=== PATIENT | male | born 1940 | race Caucasian/White ===

== ENCOUNTER 2022-06-04 12:37 | Inpatient (IN) | payer OTHER ==
[~2022-06-04] VITALS: Ht 182.9 cm; Wt 64.4 kg
[~2022-06-04 12:37] MED LIST: OXYACE5T PO
[2022-06-04 13:14] LABS: BASOPHILS ABSOLUTE AUTO 0.11 K/mm3 (0.00-0.23); BASOPHILS PERCENT AUTO 1 % (0-2); EOSINOPHILS ABSOLUTE AUTO 0.03 K/mm3 (0.00-0.68); EOSINOPHILS PERCENT AUTO 0 % (0-6); Hematocrit 43.1 % (37.0-53.0); Hemoglobin 13.8 g/dL (13.5-17.5); IMMATURE GRAN ABSOLUTE AUTO 0.08 K/mm3 (0.00-0.10); IMMATURE GRAN PERCENT AUTO 0 % (0-1); LYMPHOCYTES ABSOLUTE AUTO 0.97 K/mm3 (0.84-5.20); LYMPHOCYTES PERCENT AUTO 4 % (21-46); MONOCYTES ABSOLUTE AUTO 0.95 K/mm3 (0.16-1.47); MONOCYTES PERCENT AUTO 4 % (4-13); Mean Corpuscular HGB 28.5 pg (26.0-34.0); Mean Corpuscular Volume 89 fL (80-100); Mean Platelet Volume 11.2 fL (9.1-12.4); NEUTROPHILS ABSOLUTE AUTO 19.68 K/mm3 (1.96-9.15); NEUTROPHILS PERCENT AUTO 90 % (41-73); Platelet Count 390 K/mm3 (150-400); RDW Coefficient Variation 14.7 % (11.7-14.2); RDW Standard Deviation 47.8 fL (35.1-46.3); Red Blood Cell Count 4.84 M/mm3 (4.30-5.90); White Blood Cell Count 21.82 K/mm3 (4.00-11.30)
[2022-06-04 13:49] LABS: Albumin, Blood 3.3 g/dL (3.4-5.0); Albumin/Globulin Ratio 0.8 (0.8-1.8); Bilirubin, Total 0.3 mg/dL (0.1-1.0); Bun/Creatinine Ratio 50.7 (12.0-20.0); Calcium, Blood 9.1 mg/dL (8.5-10.1); Creatinine, Blood 0.55 mg/dL (0.60-1.20); Potassium, Blood 4.7 mmol/L (3.5-5.5); Total Protein, Blood 7.3 g/dL (6.4-8.2)
[2022-06-04 14:09] LABS: Influenza A, PCR NEGATIVE (NEGATIVE); Influenza B, PCR NEGATIVE (NEGATIVE); Resp Syncytial Virus, PCR NEGATIVE (NEGATIVE); SARS-Cov-2 (COVID-19) PCR, MMC NEGATIVE (NEGATIVE)
--- NOTE | 2022-06-04 19:50 | NUR ---
SHIFT SUMMARY PTN ADMIT FROM ER AT 1740. PTN TO ER FOR SOB, FOUND TO HAVE SEPSIS/PNEUMONIA. PTN INDEPENDENT, A&O. SKIN HAS SOME BRUISING TO ARMS, SOME REDNESS TO BUTTOCKS THAT IS BLANCHING BUT AT RISK FOR PRESSURE INJURY. PTN EDUCATED ON IMPORTANCE TO SHIFT AND CHANGE POSITIONS OFTEN. PTN DOES SELF CATH, MEASURES OUTPUT. PTN IS NOTED TO HAVE SLIGHT FEVER. LAB CALLED FOR LACTIC ACID 6.0, REPORTED TO NEXT SHIFT RN. SPUTUM CULTURE ORDERED. AT THIS TIME PTN COUGH IS DRY AND NONPRODUCTIVE. CULTURE COLLECTION CUP PROVIDED. CONTINUE TO FOLLOW.
--- NOTE | 2022-06-04 20:56 | NUR ---
SPOKE WITH DR SHAH RE PT'S LACTIC ACID INCREASING TO 6.0 FROM 2.3, PT GOT ROCEPHIN IN THE ER AND HAS LR ORDERED TO RUN AT 150, DR DOES NOT WANT TO ORDER MORE FLUIDS AT THIS TIME, WANTS TO MONITOR THE BP AND IF THERE IS A CHANGE IN THE VS WILL REEVALUATE. ALSO ORDERED ANOTHER LACTIC ACID FOR MIDNIGHT. WE WILL ALSO RECHECK VS AT MIDNIGHT. VS WERE TEMP 98.9, BP 129/68, PULSE 105, BIOX 98% ON 2L NC, RESPIRATIONS 18, PT IS AAO X 4. CARPENTER SUPERVISOR IS AWARE OF THE NEED FOR VS AT MIDMIGHT, WILL SPEAK WITH THE PRIMARY RN RE THE REPEAT LACTIC ACID AND THE MONITORING OF THE BP.
[2022-06-04] MEDS ORDERED: ACET500 PO (23:40)
[2022-06-04] MEDS ORDERED: AZIT500 PO (23:41)
[2022-06-04] MEDS ORDERED: CALCIUM CARBON650 MG PO (23:45)
[2022-06-04] MEDS ORDERED: FLUT1DIS5 INH (23:46)
[2022-06-04] MEDS ORDERED: IPRAT-ALBUT 0.5-3 ML INH (23:46)
[2022-06-04] MEDS ORDERED: MELA3 PO (23:47)
[2022-06-04] MEDS ORDERED: Lisinopril2.5 MG PO (23:47)
[2022-06-04] MEDS ORDERED: Inzo Antifun141.7 GM TOP (23:48)
[2022-06-04] MEDS ORDERED: PANT40 PO (23:49)
[2022-06-04] MEDS ORDERED: MIRALAX17 GM PO (23:49)
[2022-06-04] MEDS ORDERED: ARTIFICIAL TEAR15 M2 BOTHEYES (23:49)
[2022-06-04] MEDS ORDERED: TAMS.4ER PO (23:50)
[2022-06-04] MEDS ORDERED: TIOT18 INH (23:51)
[2022-06-05 00:42] LABS: BASOPHILS ABSOLUTE AUTO 0.04 K/mm3 (0.00-0.23); BASOPHILS PERCENT AUTO 0 % (0-2); EOSINOPHILS PERCENT AUTO 0 % (0-6); Hematocrit 36.9 % (37.0-53.0); Hemoglobin 11.8 g/dL (13.5-17.5); IMMATURE GRAN PERCENT AUTO 1 % (0-1); LYMPHOCYTES ABSOLUTE AUTO 0.67 K/mm3 (0.84-5.20); LYMPHOCYTES PERCENT AUTO 2 % (21-46); MONOCYTES ABSOLUTE AUTO 0.89 K/mm3 (0.16-1.47); MONOCYTES PERCENT AUTO 3 % (4-13); Mean Corpuscular HGB 28.6 pg (26.0-34.0); Mean Corpuscular Volume 89 fL (80-100); Mean Platelet Volume 11.5 fL (9.1-12.4); NEUTROPHILS ABSOLUTE AUTO 26.34 K/mm3 (1.96-9.15); NEUTROPHILS PERCENT AUTO 94 % (41-73); Platelet Count 359 K/mm3 (150-400); RDW Coefficient Variation 14.6 % (11.7-14.2); RDW Standard Deviation 47.5 fL (35.1-46.3); Red Blood Cell Count 4.13 M/mm3 (4.30-5.90); White Blood Cell Count 28.14 K/mm3 (4.00-11.30)
[2022-06-05 01:05] LABS: Albumin, Blood 2.6 g/dL (3.4-5.0); Albumin/Globulin Ratio 0.7 (0.8-1.8); Bilirubin, Total 0.3 mg/dL (0.1-1.0); Bun/Creatinine Ratio 47.8 (12.0-20.0); Calcium, Blood 8.9 mg/dL (8.5-10.1); Creatinine, Blood 0.63 mg/dL (0.60-1.20); Globulin, Blood 3.9 g/dL (2.2-4.0); Potassium, Blood 4.5 mmol/L (3.5-5.5); Total Protein, Blood 6.5 g/dL (6.4-8.2)
--- NOTE | 2022-06-05 07:50 | NUR ---
PATIENT A&OX4, VERY LOOSE SOUNDING NON PRODUCTIVE COUGH MOST OF THE NIGHT. HOSPITALIST NOTIFIED EARLY IN SHIFT OF ELEVATING LACTIC ACID LEVEL OF 6 (UP FROM 2.3 IN ER) 2ND REFLEXIVE LACTIC AT 2400 DOWN TO 4.3. NO COMPLAINTS OF PAIN OR DISCOMFORT NOTED OVERNIGHT.
--- NOTE | 2022-06-05 15:48 | NUR ---
SHIFT SUMMARY PT AWAKE DURING SHIFT REPORT, WATCHING TV. PLEASANT AND CO-OP WITH CARE. ADMITTED FOR SEVERE SEPSIS/PNM. PT RECEIVING IV ABX AND STEROIDS. SPUTUM CX OBTAINED AND SENT. SR ON TELE, PER MX TECH. PER REPORT, PT SELF CATHS ONCE PER DAY; SUPPLIES PROVIDED. DR BARRERA IN TO SEE PT EARLY THIS AM. VERBAL ORDER TO HOLD LISINOPRIL THIS AM. DR TO PLACE PERAMETERS LATER. NO C/O PAIN. DENIED FURTHER NEEDS. CALL LT IN REACH.
--- NOTE | 2022-06-05 23:50 | NUR ---
ASSUMED CARE FROM KAREN EDEN.
--- NOTE | 2022-06-05 23:54 | NUR ---
PATIENT HAS BEEN DOING WELL THIS SHIFT. PT SELF CATHED HIMSELF AT 2330 FOR 290CC YELLOW URINE. PT REMAINS ON 3 LITTERS O2 WITH INSPIRATORY WHEEZING AND EXPIRITORY COURSENESS. DRY COUGH. TELE SHOWS SR RATE 66. PT IS VERY ALERT AND ORIENTED X4. MIKAELA RN WILL BE ASSUMING CARE OF PATIENT AT THIS TIME. BEDSIDE REPORT GIVEN. CALL LIGHT IN REACH.
--- NOTE | 2022-06-06 04:12 | NUR ---
SHIFT SUMMARY; THE PT IS AXO X4, THE PT HAS NOT GOT OUT OF BED THIS EVENING R/T TO WEAKNESS. THE PT SELF CATHETERIZES HIMSELF TID OR Q6HRS IF NEEDED. 200-300MLS EACH TIME. THE PT IS ON 3L NC, 2L NC IS BASELINE. THE PTS O2 SATS HAVE BEEN >95% ON 3L. TELE IS IN PLACE, SINUS HERM[place]O THIS EVENING IN THE 40/50'S. THE PT DENIES ANY SOB, PAIN, CHEST PAIN OR PRESSURE. CURRENTLY THE PT IS SLEEPING IN BED WITH THE BED IN THE LOWEST POSITION AND THE CALL LIGHT AT BEDSIDE.
[2022-06-06 06:21] LABS: BASOPHILS ABSOLUTE AUTO 0.02 K/mm3 (0.00-0.23); BASOPHILS PERCENT AUTO 0 % (0-2); EOSINOPHILS PERCENT AUTO 0 % (0-6); Hematocrit 33.3 % (37.0-53.0); IMMATURE GRAN ABSOLUTE AUTO 0.18 K/mm3 (0.00-0.10); IMMATURE GRAN PERCENT AUTO 1 % (0-1); LYMPHOCYTES ABSOLUTE AUTO 0.67 K/mm3 (0.84-5.20); LYMPHOCYTES PERCENT AUTO 3 % (21-46); MONOCYTES ABSOLUTE AUTO 0.73 K/mm3 (0.16-1.47); MONOCYTES PERCENT AUTO 3 % (4-13); Mean Corpuscular HGB 29.2 pg (26.0-34.0); Mean Corpuscular Volume 88 fL (80-100); Mean Platelet Volume 12.3 fL (9.1-12.4); NEUTROPHILS PERCENT AUTO 93 % (41-73); Platelet Count 335 K/mm3 (150-400); RDW Coefficient Variation 14.7 % (11.7-14.2); RDW Standard Deviation 47.8 fL (35.1-46.3); Red Blood Cell Count 3.77 M/mm3 (4.30-5.90)
[2022-06-06 06:27] LABS: Bun/Creatinine Ratio 72.9 (12.0-20.0); Calcium, Blood 8.7 mg/dL (8.5-10.1); Creatinine, Blood 0.48 mg/dL (0.60-1.20); Potassium, Blood 4.7 mmol/L (3.5-5.5)
[2022-06-06 14:04] LABS: SARS-Cov-2 (COVID-19) Antigen Negative (NEGATIVE)
[2022-06-06] MEDS ORDERED: PRED20 PO (14:30)
[2022-06-06] MEDS ORDERED: VISBIOME 112.51 EACH PO (14:30)
--- NOTE | 2022-06-06 20:10 | NUR ---
PT AWAKE DURING SHIFT REPORT, WATCHING TV. PLEASANT AND CO-OP. DENIED NEEDS. NO C/O. PT IMPROVING, BACK TO BASELINE 2L O2. DR BARRERA AND DR TOBIAS BOTH IN TO SEE PT AND DISCUSS PLAN OF CARE. [facility] B[facility] AVAIL[facility]. [facility] [employer] UPDATED ON PT STATUS AND NOTIFIED [facility] B[facility] AVAIL[facility] AND TRANSPORT ARRANGED. PT ABLE TO TX TO W/C WITH EMS. REPORT CALLED TO MEEK JONES AT [facility] @ 0466. [phone] EXT [phone]. PT HAD NO BELONGINGS, BUT THE CLOTHES HE WORE.
== END 2022-06-06 14:51 | DRG 871 ==
LOC: ER 12:37 → MEDS 15:42
PROVIDERS: Emergency Medicine; Family Medicine; ADMIT Internal Medicine
DX: A41.89 Other specified sepsis (principal); J12.9 Viral pneumonia, unspecified; J96.21 Acute and chronic respiratory failure with hypoxia; J44.1 Chronic obstructive pulmonary disease with (acute) exacerbation; E87.20 Acidosis, unspecified; J44.0 Chronic obstructive pulmonary disease with (acute) lower respiratory infection; N13.8 Other obstructive and reflux uropathy; J96.12 Chronic respiratory failure with hypercapnia; R65.20 Severe sepsis without septic shock; N40.1 Benign prostatic hyperplasia with lower urinary tract symptoms; R33.8 Other retention of urine; I10 Essential (primary) hypertension; G47.00 Insomnia, unspecified; D75.1 Secondary polycythemia; J84.10 Pulmonary fibrosis, unspecified; G47.33 Obstructive sleep apnea (adult) (pediatric); Z20.822 Contact with and (suspected) exposure to COVID-19; Z88.8 Allergy status to other drugs, medicaments and biological substances; Z99.81 Dependence on supplemental oxygen; Z79.891 Long term (current) use of opiate analgesic; Z98.890 Other specified postprocedural states; Z87.891 Personal history of nicotine dependence; Z99.3 Dependence on wheelchair
CPT/HCPCS: 0241U; 36415; 51701; 71045; 80048; 80053; 83605; 83880; 84145; 84484; 85025; 87040; 87070; 87205; 87426; 93005; 93010; 94640; 94644; 94664; 94760; 94762; 96365-59; 96375-59; 99285-25; A9270; C9803; J0696; J1650; J2930; J7120; J7512